=== PATIENT | female | born 1950 | race Caucasian/White ===

== ENCOUNTER → 2016-09-16 | Outpatient (CLI) | payer MEDICARE, OTHER | LOC: CARD 09:04 | PROVIDERS: ATTEND Internal Medicine Interventional Cardiology | DX: R42 Dizziness and giddiness (principal); R00.1 Bradycardia, unspecified | CPT/HCPCS: 93225; 93226; 93306 ==

== ENCOUNTER → 2016-10-06 | Outpatient (CLI) | payer MEDICARE, OTHER ==
--- NOTE | 2016-10-06 15:56 | Diagnostic Imaging Report ---
INDICATION: Thyroid nodule. TECHNIQUE: Grayscale sonographic images of the thyroid gland. CORRELATION STUDY: None FINDINGS: RIGHT LOBE: 4.7 x 1.5 x 1.7 cm. Mid inferior aspect is a subtle slightly hypoechoic solid-appearing nodule measuring 7 x 5 x 5 mm. No significant internal vascularity. No significant microcalcifications suggested. LEFT LOBE: 5.5 x 1.2 x 1.8 cm. Centrally, there is a hypoechoic nodule measuring 7 x 5 x 6 mm. No internal vascularity. Slight posterior acoustic enhancement could be slightly completed cyst. Isthmus appears unremarkable. IMPRESSION: Enlarged thyroid gland containing single nodules. Findings are currently indeterminate currently favoring likely benign process. Would however recommend followup ultrasound imaging in approximately six months for reassessment. Dictated by: Dictated on workstation # [id number]
== END ==
LOC: RAD 11:14
PROVIDERS: ATTEND Otolaryngology Otolaryngology/Facial Plastic Surgery
DX: E04.2 Nontoxic multinodular goiter (principal)
CPT/HCPCS: 76536

== ENCOUNTER → 2016-10-29 | Outpatient (CLI) | payer MEDICARE, OTHER ==
--- NOTE | 2016-11-01 08:48 | Diagnostic Imaging Report ---
EXAMINATION: Bilateral screening mammogram 2D views with tomosynthesis. The current study was also evaluated with a Computer Aided Detection (CAD) system. INDICATION: Screening. PERSONAL HISTORY: No current complaints stated on the questionnaire. COMPARISON: 10/29/2015. FINDINGS: The breasts are composed of scattered fibroglandular densities. Benign-appearing calcifications are seen. In the right breast, there is a focal asymmetry seen in the central lower aspect of the right breast with persistent asymmetries on the tomography views. The left breast demonstrates no definite change. IMPRESSION: Focal compression views and an ultrasound evaluation for right breast focal asymmetry is recommended. ACR BI-RADS Category 0: Incomplete. (Needs additional imaging evaluation). Result letter will be mailed to the patient. Note: At least 10% of breast cancer is not imaged by mammography. Dictated by: Dictated on workstation # [id number]
== END ==
LOC: RAD 09:52
PROVIDERS: ATTEND Nurse Practitioner Adult Health
DX: Z12.31 Encounter for screening mammogram for malignant neoplasm of breast (principal)
CPT/HCPCS: 77067

== ENCOUNTER → 2016-11-19 | Outpatient (CLI) | payer MEDICARE, OTHER ==
--- NOTE | 2016-11-19 19:58 | Diagnostic Imaging Report ---
Unilateral diagnostic right mammogram with tomosynthesis. INDICATION: Abnormal screening mammogram. The current study was also evaluated with a Computer Aided Detection (CAD) system. FINDINGS: The recent screening mammogram performed on 10/29/2016 noted a focal asymmetry in the central portion of the breast. The compression views of this area show that this density has a generally benign appearance. I suspect that this is a cyst. Even so, an ultrasound will be recommended for further study. There is also a smaller 5 mm density in the far lateral aspect of the right breast. This is only clearly seen on the craniocaudal view. In reviewing the tomographic images, there may be a small density in this region. The finding is not as conspicuous on the compression view and is difficult to identify with certainty on the ML view. Even so, I would recommend that this portion of the right breast be evaluated by ultrasound as well. IMPRESSION: The rounded density in the midportion of the right breast seen previously is most likely a benign process. There is also a much smaller density in the far lateral aspect of the right breast. This does not have a threatening appearance, but ultrasound of both these areas will be recommended for further study. ACR BI-RADS Category 0: Incomplete. (Needs additional imaging evaluation). Result letter will be mailed to the patient. Note: At least 10% of breast cancer is not imaged by mammography. Dictated by: Dictated on workstation # [id number]
--- NOTE | 2016-11-19 20:09 | Diagnostic Imaging Report ---
INDICATION: Abnormal mammogram. EXAMINATION: Ultrasound of the right breast. FINDINGS: The screening mammogram performed 10/29/16 noted a focal asymmetry in the central portion of the breast. There was a small area of slightly increased density in the lateral aspect of the breast as well. The diagnostic mammogram performed earlier today suggested that the density in the central portion of the breast was a benign process. On this study, there is a roughly 7 mm benign appearing cyst in the 10:30 position of the right breast, roughly 7 cm from the nipple. I suspect that this corresponds to the rounded density seen on the mammogram. The small nodular density in the far lateral aspect of the breast could not be identified as either cystic or solid. I suspect it is a benign process but I would recommend that a six month followup mammogram and ultrasound exam of the right breast be obtained for continued evaluation. IMPRESSION: The nodular density in the midportion of the breast is a cyst. The small density in the lateral aspect of the breast, seen on mammogram, could not be clearly identified. This finding is most likely benign. Recommendations as above. ACR BI-RADS Category 3: Probably benign findings. Result letter will be mailed to the patient. Note: At least 10% of breast cancer is not imaged by mammography. Dictated by: Dictated on workstation # [id number]
== END ==
LOC: RAD 07:19
PROVIDERS: ATTEND Nurse Practitioner Adult Health
DX: R92.8 Other abnormal and inconclusive findings on diagnostic imaging of breast (principal)

== ENCOUNTER → 2017-03-24 | Outpatient (CLI) | payer MEDICARE, OTHER ==
--- NOTE | 2017-03-24 13:00 | Diagnostic Imaging Report ---
CLINICAL INDICATION: Patient with thyroid nodules. COMPARISONS: Thyroid ultrasound dated 10/06/2016. FINDINGS: THYROID NODULES: There is a 7 mm x 5 mm x 7 mm slightly heterogeneous hypoechoic nodule within the posteroinferior aspect of the right thyroid gland. This nodule has not significantly changed compared to the prior study. There is a 7 mm x 4 mm x 6 mm hypoechoic nodule in the mid left thyroid gland region. This nodule has not significantly changed compared to the prior ultrasound exam. THYROID GLAND: Besides the thyroid nodules, the thyroid gland has normal size, shape and echogenicity. The right lobe measures 5.0 cm x 1.5 cm x 1.6 cm and the left lobe measures 4.7 cm x 1.5 cm x 1.5 cm in their three dimensions. ISTHMUS: The isthmus is unremarkable and measures 3 mm in thickness. IMPRESSION: Stable right and left thyroid gland nodules both measuring 7 mm in greatest dimension. Otherwise, unremarkable thyroid gland ultrasound exam. Dictated by: Dictated on workstation # [id number]
== END ==
LOC: RAD 09:29
PROVIDERS: ATTEND Otolaryngology Otolaryngology/Facial Plastic Surgery
DX: E04.2 Nontoxic multinodular goiter (principal)
CPT/HCPCS: 76536

== ENCOUNTER → 2017-05-11 | Outpatient (CLI) | payer MEDICARE, OTHER ==
--- NOTE | 2017-05-11 14:57 | Diagnostic Imaging Report ---
Digital mammogram bilateral screening. INDICATION: Followup exam. This study was compared to the prior exams of 10/29/16 and 10/28/15. At this time, there are no current complaints. The current study was also evaluated with a Computer Aided Detection (CAD) system. FINDINGS: The previous exam of 11/19/16 noted a focal asymmetry in the central portion of the breast. The subsequent ultrasound exam indicated that there was a 7 mm benign-appearing cyst in the 10:30 position of the right breast in this area. On this exam, that density does not seem as conspicuous. Ultrasound is pending for further study. The previous study also noted a small 5 mm density in the lateral aspect of the right breast. This could not be identified by ultrasound. That finding is again evident and no different. The overall appearance of the breast has not changed significantly otherwise. There is no primary or secondary sign of malignancy noted. There are scattered fibroglandular densities in the right breast which could obscure a lesion, however. IMPRESSION: The small nodular density in the midportion of the right breast seen previously is not as conspicuous on this exam. The overall appearance of the breast has not changed significantly otherwise. Ultrasound is pending for further evaluation. ACR BI-RADS Category 0: Incomplete. (Needs additional imaging evaluation). Result letter will be mailed to the patient. Note: At least 10% of breast cancer is not imaged by mammography. Dictated by: Dictated on workstation # [id number]
--- NOTE | 2017-05-11 15:17 | Diagnostic Imaging Report ---
INDICATION: Followup mammogram. EXAMINATION: Ultrasound of the right breast, limited. FINDINGS: The diagnostic mammogram performed on the 11/19/16 noted a small rounded density in the midportion of the right breast as well as a smaller density in the lateral aspect of the right breast. The right breast ultrasound exam performed at the same time indicated that there was a small, 7 mm, cyst in the 7 o'clock position of the right breast. On the diagnostic mammogram performed earlier today, the density in the midportion of the right breast did not seem as conspicuous. On this exam, the cyst noted previously cannot be identified. There is still no discrete solid or cystic mass visualized. IMPRESSION: 1. The small cyst in the 10:30 position of the right breast, seen previously, is no longer evident. There is no solid mass to suggest malignancy. 2. It may prove worthwhile to have a followup diagnostic mammogram of the right breast in six months for continued evaluation. A screening mammogram of the left breast could also be performed at the same time. ACR BI-RADS Category 3: Probably benign findings. Result letter will be mailed to the patient. Note: At least 10% of breast cancer is not imaged by mammography. Dictated by: Dictated on workstation # [id number]
== END ==
LOC: RAD 12:24
PROVIDERS: ATTEND Internal Medicine
DX: Z09 Encounter for follow-up examination after completed treatment for conditions other than malignant neoplasm (principal); R92.8 Other abnormal and inconclusive findings on diagnostic imaging of breast

== ENCOUNTER 2017-06-06 08:30 | Outpatient (RCR) | payer MEDICARE, OTHER | END 2017-08-11 | disposition home or self-care (01) | LOC: CARD 08:30 | PROVIDERS: ATTEND Internal Medicine Interventional Cardiology | DX: R42 Dizziness and giddiness (principal) | CPT/HCPCS: 93270 ==

== ENCOUNTER → 2017-06-16 | Outpatient (CLI) | payer MEDICARE, OTHER ==
[~2017-06-16] MED LIST: IOHEXOL 350 MG/ML 100 ML (OMNIPAQUE 350) VIAL IV ONE; NS 250 ML (IVPB) BAG IV ONE
[2017-06-16 08:43] LABS: CREATININE SERUM 0.97 MG/DL (0.60-1.30)
--- NOTE | 2017-06-16 10:53 | Diagnostic Imaging Report ---
CLINICAL INDICATION: Patient with dizziness/balance issues x1 year. Patient with memory loss x3 months. Dementia. EXAM: Axial CT scan of the brain performed without IV contrast and with 80 cc of Omnipaque 350 IV contrast. COMPARISON: None. FINDINGS: There is no CT evidence of acute cerebral infarct, intracranial hemorrhage, brain herniation, or hydrocephalus. There is no abnormal IV contrast enhancement. There are focal and patchy areas of low-attenuation white matter changes seen throughout both cerebral hemispheres, likely representing chronic small vessel ischemic disease. Otherwise, there is normal styles-white matter distinction. The brain parenchymal volume appears appropriate for patient's age. The visualized portions of the [place] is grossly unremarkable. The basal cisterns are unremarkable. Mild hyperostosis frontalis is seen. The extracranial soft tissue, skull, and orbits are otherwise unremarkable. Paranasal sinuses and temporal bone structures show no significant abnormality. IMPRESSION: 1.: There is no evidence of acute intracranial process. There is no abnormal IV contrast enhancement. There is no hydrocephalus. 2: Age-related appearing brain parenchymal changes with chronic small vessel ischemic disease and mild brain parenchymal volume loss. Dictated by: Dictated on workstation # [id number]
== END ==
LOC: RAD 08:14
PROVIDERS: ATTEND Internal Medicine
DX: I67.82 Cerebral ischemia (principal); F03.90 Unspecified dementia, unspecified severity, without behavioral disturbance, psychotic disturbance, mood disturbance, and anxiety; R41.3 Other amnesia; G93.89 Other specified disorders of brain
CPT/HCPCS: 36415; 70470; 82565; 84520

== ENCOUNTER → 2017-09-20 | Outpatient (CLI) | payer MEDICARE, OTHER ==
[2017-09-20 09:17] LABS: BILIRUBIN,URINE NEGATIVE (NEGATIVE); CLARITY,URINE SLIGHTLY CLOUDY; COLOR,URINE YELLOW; GLUCOSE, URINE (UA) NEGATIVE (NEGATIVE); KETONES,URINE NEGATIVE (NEGATIVE); LEUKOCYTE ESTERASE ,URINE NEGATIVE (NEGATIVE); NITRITE,URINE POSITIVE (NEGATIVE); PH,URINE 6.5 (5-9); PROTEIN,URINE NEGATIVE (NEGATIVE); UROBILINOGEN,URINE NORMAL (NORMAL)
[2017-09-20 09:18] LABS: HEMOGLOBIN 14.4 G/DL (11.5-16.0); RED BLOOD COUNT 4.51 10^6/uL (4.35-5.85); RED CELL DISTRIBUTION WIDTH 13.2 % (10.0-14.5); WHITE BLOOD COUNT 6.1 10^3/uL (4.3-11.0)
[2017-09-20 09:28] LABS: BACTERIA,URINE NEGATIVE /HPF; SQUAMOUS EPITHELIAL CELL,UR 0-2 /HPF; WBC,URINE 0-2 /HPF
[2017-09-20 09:49] LABS: URINE CREATININE FOR RATIO 45 MG/DL (30-125); URINE PROTEIN FOR RATIO ONLY < 6 MG/DL (6-12)
[2017-09-20 09:50] LABS: ALBUMIN 4.4 GM/DL (3.2-4.5); CREATININE SERUM 0.98 MG/DL (0.60-1.30); PHOSPHORUS 3.6 MG/DL (2.3-4.7)
== END ==
LOC: LAB 08:54
PROVIDERS: ATTEND Nurse Practitioner
DX: E78.5 Hyperlipidemia, unspecified (principal); E55.9 Vitamin D deficiency, unspecified; E83.39 Other disorders of phosphorus metabolism; E87.3 Alkalosis; E87.6 Hypokalemia; E83.52 Hypercalcemia; I12.9 Hypertensive chronic kidney disease with stage 1 through stage 4 chronic kidney disease, or unspecified chronic kidney disease; N18.3 Chronic kidney disease, stage 3 (moderate)
CPT/HCPCS: 36415; 80061; 80069; 81000; 82306; 82570; 84156; 85027; 87088

== ENCOUNTER → 2018-01-12 | Outpatient (CLI) | payer MEDICARE, OTHER ==
[2018-01-12 09:01] LABS: ALANINE AMINOTRANSFERASE 23 U/L (0-55); ALBUMIN 4.6 GM/DL (3.2-4.5); ALKALINE PHOSPHATASE 56 U/L (40-136); BILIRUBIN,TOTAL 0.9 MG/DL (0.1-1.0); BUN/CREATININE RATIO 19; CALCIUM 9.8 MG/DL (8.5-10.1); CARBON DIOXIDE 22 MMOL/L (21-32); CHLORIDE 107 MMOL/L (98-107); CHOLESTEROL 170 MG/DL (< 200); CREATININE SERUM 0.99 MG/DL (0.60-1.30); GFR ESTIMATED 56; GLUCOSE 104 MG/DL (70-105); HDL CHOLESTEROL 54 MG/DL (40-60); POTASSIUM 3.7 MMOL/L (3.6-5.0); SODIUM 139 MMOL/L (135-145); TOTAL PROTEIN 7.4 GM/DL (6.4-8.2); TRIGLYCERIDES 140 MG/DL (<150); VLDL CHOLESTEROL 28 MG/DL (5-40)
== END ==
LOC: LAB 08:22
PROVIDERS: ATTEND Internal Medicine
DX: I10 Essential (primary) hypertension (principal); E78.00 Pure hypercholesterolemia, unspecified
CPT/HCPCS: 36415; 80053; 80061; 84443

== ENCOUNTER → 2021-11-20 | Outpatient (CLI) | payer MEDICARE, OTHER ==
--- NOTE | 2021-11-23 08:49 | Diagnostic Imaging Report ---
INDICATION: Routine screening. Comparison is made with prior mammogram of 11/25/2017 and 10/29/2016. 2-D and 3-D bilateral screening mammography was performed with CAD. Both breasts are heterogeneously dense, limiting the sensitivity of mammography. The parenchymal pattern is stable. There are benign calcifications. No dominant mass or malignant-appearing microcalcifications are seen. Axillae are unremarkable. IMPRESSION: No mammographic features suspicious for malignancy are identified. ACR BI-RADS Category 2: Benign findings. Result letter will be mailed to the patient. Note: At least 10% of breast cancer is not imaged by mammography. BI-RADS Category 2 Dictated by: Dictated on workstation # [id number]
== END ==
LOC: RAD 15:07
PROVIDERS: ATTEND Family Medicine
DX: Z12.31 Encounter for screening mammogram for malignant neoplasm of breast (principal)
CPT/HCPCS: 77063; 77067

== ENCOUNTER 2023-01-12 20:07 | Observation (INO) | payer MEDICARE ==
[~2023-01-12] VITALS: Ht 170.2 cm; Wt 72.7 kg
--- NOTE | 2023-01-12 20:18 | ED General ---
General Chief Complaint: General Problems/Pain Stated Complaint: WEAKNESS Nursing Triage Note: PT TO ED VIA EMS WITH C/O GEN WEAKNESS OVER THE LAST WEEK, LOWER RIGHT SIDED BACK PAIN Source of Information: Patient (PT IS EXTREMELY POOR HISTORIAN--HAS DEMENTIA, UNABLE TO GIVE ANY RELIABLE INFORMATION, BUT IS ABLE TO ANSWER YES/NO QUESTIONS ABOUT PAIN ), Intermediate Records, Other (PT'S NIECE AND DPOA) History of Present Illness Date Seen by Provider: Jan 12, 2023 Time Seen by Provider: 20:09 Initial Comments PT ARRIVES VIA EMS FROM [facility] FOR THE LAST WEEK, PT HAS HAD LOW BACK PAIN AND RIGHT LEG PAIN AND WEAKNESS NO KNOWN INJURY PT IS NORMALLY AMBULATORY WITHOUT ASSIST, BUT HAS NOT BEEN ABLE TO GET OUT OF BED OR STAND OR AMBULATE FOR THE LAST WEEK, WITHOUT 2 PERSON ASSIST. NIECE/DPOA STATES THAT SHE HAS NOTICED GENERALIZED WEAKNESS, AND NEEDING ASSISTANCE WITH AMBULATION FOR THE LAST WEEK, BUT GETTING WORSE . HAS NOT SOUGHT CARE UNTIL TONIGHT HAS NOT TAKEN ANYTHING FOR PAIN PCP: DR. MEJIA Allergies and Home Medications Allergies Coded Allergies: No Allergy Information Available (Unverified , 06/16/17) Patient Home Medication List Home Medication List Reviewed: Yes Review of Systems Review of Systems Constitutional: no symptoms reported Respiratory: no symptoms reported Cardiovascular: no symptoms reported Gastrointestinal: no symptoms reported Genitourinary: no symptoms reported Musculoskeletal: see HPI Skin: no symptoms reported Psychiatric/Neurological: See HPI Past Czyfiip-Vpwbfe-Mwllqd Hx Past Medical History Neurological: Yes Dementia Physical Exam Vital Signs Vital Signs - First Documented 01/12/23 20:10 Temp 36.8 Pulse 61 Resp 18 Pulse Ox 97 Capillary Refill : Height, Weight, BMI Height: '" Weight: lbs. oz. kg; BMI Method: General Appearance: No Apparent Distress, WD/WN, Other (HAIR IS DYED PURPLE) Neck: Normal Inspection Respiratory: Chest Non Tender, Normal Breath Sounds, No Accessory Muscle Use, No Respiratory Distress Cardiovascular: Regular Rate, Rhythm, No Murmur Gastrointestinal: Non Tender, Soft Back: No CVA Tenderness, Other (TENDERNESS TO LUMBAR AND RIGHT SI JOINT/POSTERIOR ILIAC AREA. PAIN TO THIS AREA WITH MOVEMENT OF RIGHT LEG. ) Extremity: Normal Capillary Refill, Pedal Edema (TRACE BILATERALLY) Neurologic/Psychiatric: Alert, No Motor/Sensory Deficits, Normal Mood/Affect, lift manager II-XII Norm as Tested, Other (NORMAL BASELINE--DEMENTIA/POOR MEMORY. ORIENTED TO SELF, NIECE. KNOWS SHE IS IN HOSPITAL. ) Skin: Normal Color, Warm/Dry; No Rash Progress/Results/Core Measures Suspected Sepsis SIRS Temperature: Pulse: 61 Respiratory Rate: 18 Laboratory Tests 01/12/23 20:14: White Blood Count 9.4 Blood Pressure / Mean: Laboratory Tests 01/12/23 20:14: Creatinine 0.93, Platelet Count 234, Total Bilirubin 0.5 Results/Orders Lab Results Laboratory Tests Test 01/12/23 20:14 01/12/23 20:22 Range/Units White Blood Count 9.4 4.3-11.0 10^3/uL Red Blood Count 4.67 3.80-5.11 10^6/uL Hemoglobin 14.8 11.5-16.0 g/dL Hematocrit 44 35-52 % Mean Corpuscular Volume 94 80-99 fL Mean Corpuscular Hemoglobin 32 25-34 pg Mean Corpuscular Hemoglobin Concent 34 32-36 g/dL Red Cell Distribution Width 13.0 10.0-14.5 % Platelet Count 234 130-400 10^3/uL Mean Platelet Volume 10.8 9.0-12.2 fL Immature Granulocyte % (Auto) 0 % Neutrophils (%) (Auto) 50 42-75 % Lymphocytes (%) (Auto) 36 12-44 % Monocytes (%) (Auto) 8 0-12 % Eosinophils (%) (Auto) 5 0-10 % Basophils (%) (Auto) 1 0-10 % Neutrophils # (Auto) 4.7 1.8-7.8 10^3/uL Lymphocytes # (Auto) 3.3 1.0-4.0 10^3/uL Monocytes # (Auto) 0.8 0.0-1.0 10^3/uL Eosinophils # (Auto) 0.5 H 0.0-0.3 10^3/uL Basophils # (Auto) 0.1 0.0-0.1 10^3/uL Immature Granulocyte # (Auto) 0.0 0.0-0.1 10^3/uL Sodium Level 140 135-145 MMOL/L Potassium Level 3.9 3.6-5.0 MMOL/L Chloride Level 106 98-107 MMOL/L Carbon Dioxide Level 21 21-32 MMOL/L Anion Gap 13 5-14 MMOL/L Blood Urea Nitrogen 14 7-18 MG/DL Creatinine 0.93 0.60-1.30 MG/DL Estimat Glomerular Filtration Rate 64 BUN/Creatinine Ratio 15 Glucose Level 103 70-105 MG/DL Calcium Level 9.4 8.5-10.1 MG/DL Corrected Calcium 9.4 8.5-10.1 MG/DL Total Bilirubin 0.5 0.1-1.0 MG/DL Aspartate Amino Transf (AST/SGOT) 30 5-34 U/L Alanine Aminotransferase (ALT/SGPT) 20 0-55 U/L Alkaline Phosphatase 58 40-136 U/L Total Protein 7.2 6.4-8.2 GM/DL Albumin 4.0 3.2-4.5 GM/DL Urine Color YELLOW Urine Clarity CLEAR Urine pH 7.5 5-9 Urine Specific [place] 1.020 1.016-1.022 Urine Protein NEGATIVE NEGATIVE Urine Glucose (UA) NEGATIVE NEGATIVE Urine Ketones NEGATIVE NEGATIVE Urine Nitrite NEGATIVE NEGATIVE Urine Bilirubin NEGATIVE NEGATIVE Urine Urobilinogen 0.2 < = 1.0 MG/DL Urine Leukocyte Esterase NEGATIVE NEGATIVE Urine RBC (Auto) NEGATIVE NEGATIVE Urine RBC NONE /HPF Urine WBC RARE /HPF Urine Squamous Epithelial Cells NONE /HPF Urine Crystals PRESENT H /LPF Urine Amorphous Sediment LARGE ARMANDO PHOSPHATE H /LPF Urine Bacteria NEGATIVE /HPF Urine Casts PRESENT /LPF Urine Granular Casts 0-2 H /LPF Urine Mucus SMALL H /LPF Urine Culture Indicated NO My Orders Orders - DANIEL MESSER DO Ed Iv/Invasive Line Start (01/12/23 20:14) Straight Cath For Spec.-Adult (01/12/23 20:14) Cbc And Automated Diff (01/12/23 20:14) Comprehensive Metabolic Panel (01/12/23 20:14) Ua Culture If Indicated (01/12/23 20:14) Pelvis 1 To 2 Views (01/12/23 20:14) Ct Thoracic/Lumbar Spine Wo (01/12/23 20:14) Ct Pelvis Wo (01/12/23 20:14) Ed Admission (Communication) (01/12/23 21:20) Vital Signs/I&O 01/12/23 20:10 Temp 36.8 Pulse 61 Resp 18 B/P (MAP) Pulse Ox 97 Capillary Refill : Progress Note : Progress Note VITALS ON ARRIVAL: TEMP 36.8=98.2, HR 61, RR 18, BP157/83, O2 SAT 97% ON ROOM AIR LABS: -CBC NORMAL -CMP NORMAL -UA CLEAR XRAY AND CT SCANS--DEGENERATIVE CHANGES, DISC BULGING, BUT NO SIGNIFICANT STENOSIS NIECE STATES THAT PT DOES HAVE A WALKER, BUT STATES SHE CANNOT TAKE HER BACK, PT IS NOT ABLE TO AMBULATE OR STAND WITHOUT SIGNIFICANT ASSISTANCE, AND SHE IS AT [facility] ASSISTED [facility]IV[facility], SHE CURRENTLY IS NEEDING MORE ASSISTANCE THAN WHAT CAN BE PROVIDED THERE. NO PAIN WHILE LAYING STILL DISCUSSED TEST RESULTS, NEED FOR ADMIT AND PT AND NIECE ARE AGREEABLE TO PLAN Diagnostic Imaging Comments PELVIS XRAY--PER RADIOLOGIST REPORT CT THORACIC / LUMBAR SPINE--PER RADIOLOGIST REPORT AT 2104 Findings: There is no acute thoracic or lumbar fracture or dislocation. Thoracic and lumbar spine have normal alignment. The visualized extrathoracic, and lumbar soft tissue structures are unremarkable. There are degenerative spurs involving the thoracic and lumbar spine. There is no significant bony central canal or neural foramen narrowing involving the thoracic spine. There are diffuse disk bulges seen at the L2-L3, L3-L4, and L4-L5 levels. There is mild to moderate bilateral L4-L5 neural foramen narrowing and mild to moderate right L3-L4 neural foramen narrowing. There is no significant bony central canal stenosis. There is no significant paraspinal soft tissue abnormality. Impression: There is no acute thoracic spine and lumbar spine fracture or dislocation. CT PELVIS--PER RADIOLOGIST REPORT AT 2014 FINDINGS: There is no acute fracture or dislocation. There are small degenerative spurs involving the acetabular region. There is enthesopathy of the greater trochanter. There is mild sclerosis of the sacroiliac joint regions. There is diverticulosis involving the sigmoid colon with no evidence of acute diverticulitis as visualized. There is a moderate amount of stool within the rectum. 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 Reviewed: Reviewed by Me Departure Communication (Admissions) 2112--SPOKE WITH DR. STALLWORTH, HOSPITALIST FOR DR. STALLWORTH, SHE ACCEPTS PT FOR ADMIT. SHE WILL DO ADMIT ORDERS Impression Primary Impression: Low back pain Additional Impressions: Right sided sciatica Generalized weakness Dementia Disposition: ADMITTED INPATIENT Condition: Stable Admissions Decision to Admit Reason: Admit from ER (General) Decision to Admit/Date: Jan 12, 2023 Time/Decision to Admit Time: 21:15 Departure-Patient Inst. Referrals: NIYA RIBERA MD (PCP/Family) Primary Care Physician DANIEL MESSER DO Jan 12, 2023 20:17
[2023-01-12 20:24] LABS: BASOPHILS # (AUTO) 0.1 10^3/uL (0.0-0.1); BASOPHILS % (AUTO) 1 % (0-10); EOSINOPHILS # (AUTO) 0.5 10^3/uL (0.0-0.3); EOSINOPHILS % (AUTO) 5 % (0-10); HEMATOCRIT 44 % (35-52); HEMOGLOBIN 14.8 g/dL (11.5-16.0); LYMPHOCYTES # (AUTO) 3.3 10^3/uL (1.0-4.0); LYMPHOCYTES % (AUTO) 36 % (12-44); MEAN CORPUSCULAR HEMOGLOBIN 32 pg (25-34); MEAN CORPUSCULAR HGB CONC 34 g/dL (32-36); MEAN CORPUSCULAR VOLUME 94 fL (80-99); MEAN PLATELET VOLUME 10.8 fL (9.0-12.2); MONOCYTES # (AUTO) 0.8 10^3/uL (0.0-1.0); MONOCYTES % (AUTO) 8 % (0-12); NEUTROPHILS # (AUTO) 4.7 10^3/uL (1.8-7.8); NEUTROPHILS % (AUTO) 50 % (42-75); PLATELET COUNT 234 10^3/uL (130-400); WHITE BLOOD COUNT 9.4 10^3/uL (4.3-11.0)
[2023-01-12 20:33] LABS: POTASSIUM 3.9 MMOL/L (3.6-5.0)
[2023-01-12 20:34] LABS: CALCIUM 9.4 MG/DL (8.5-10.1)
[2023-01-12 20:35] LABS: TOTAL PROTEIN 7.2 GM/DL (6.4-8.2)
[2023-01-12 20:37] LABS: BILIRUBIN,TOTAL 0.5 MG/DL (0.1-1.0)
[2023-01-12 20:39] LABS: CREATININE SERUM 0.93 MG/DL (0.60-1.30)
--- NOTE | 2023-01-12 20:53 | Diagnostic Imaging Report ---
Clinical indications: Patient complains of generalized weakness over last week. Patient has lower right-sided back pain. Exam: Axial CT scan of the thoracic and lumbar spine performed without IV contrast. Sagittal and coronal reformations were performed. Bone and soft tissue windows were created. Auto Exposure Controls were utilized during the CT exam to meet ALARA standards for radiation dose reduction. Comparison: None. Findings: There is no acute thoracic or lumbar fracture or dislocation. Thoracic and lumbar spine have normal alignment. The visualized extrathoracic, and lumbar soft tissue structures are unremarkable. There are degenerative spurs involving the thoracic and lumbar spine. There is no significant bony central canal or neural foramen narrowing involving the thoracic spine. There are diffuse disk bulges seen at the L2-L3, L3-L4, and L4-L5 levels. There is mild to moderate bilateral L4-L5 neural foramen narrowing and mild to moderate right L3-L4 neural foramen narrowing. There is no significant bony central canal stenosis. There is no significant paraspinal soft tissue abnormality. Impression: There is no acute thoracic spine and lumbar spine fracture or dislocation. Dictated by: Dictated on workstation # [id number]
--- NOTE | 2023-01-12 21:00 | Diagnostic Imaging Report ---
CLINICAL INDICATION: Patient with generalized weakness over last week with lower right-sided back pain. EXAM: Axial CT scan of the pelvis performed without IV contrast. Auto Exposure Controls were utilized during the CT exam to meet ALARA standards for radiation dose reduction. COMPARISON: None. FINDINGS: There is no acute fracture or dislocation. There are small degenerative spurs involving the acetabular region. There is enthesopathy of the greater trochanter. There is mild sclerosis of the sacroiliac joint regions. There is diverticulosis involving the sigmoid colon with no evidence of acute diverticulitis as visualized. There is a moderate amount of stool within the rectum. 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 Dictated by: Dictated on workstation # [id number]
[2023-01-12 21:02] LABS: AMORPHOUS SEDIMENT,UR LARGE AMOR PHOSPHATE /LPF; BACTERIA,URINE NEGATIVE /HPF; BILIRUBIN,URINE NEGATIVE (NEGATIVE); CLARITY,URINE CLEAR; COLOR,URINE YELLOW; GLUCOSE, URINE (UA) NEGATIVE (NEGATIVE); KETONES,URINE NEGATIVE (NEGATIVE); LEUKOCYTE ESTERASE ,URINE NEGATIVE (NEGATIVE); NITRITE,URINE NEGATIVE (NEGATIVE); PH,URINE 7.5 (5-9); PROTEIN,URINE NEGATIVE (NEGATIVE); WBC,URINE RARE /HPF
[2023-01-12 21:03] LABS: GRANULAR CASTS,URINE 0-2 /LPF
--- NOTE | 2023-01-12 21:11 | Diagnostic Imaging Report ---
CLINICAL INDICATIONS: Patient with generalized weakness over last week with lower right-sided back pain. EXAM: X-ray pelvis AP view. COMPARISON: CT of the pelvis without contrast dated 01/12/2023. FINDINGS: There is no acute fracture or dislocation. There is mild sclerosis of the sacroiliac joint. There is enthesopathy of the greater trochanter regions bilaterally. There is no other significant bony abnormality. Phleboliths are seen in left pelvis region. IMPRESSION: There is mild degenerative disease of the hips with no acute fracture. Dictated by: Dictated on workstation # [id number]
[2023-01-12 22:24] VITALS: BP 146/72
[2023-01-12] MEDS ORDERED: MILK OF MAGNESIA 400 MG/5 ML 30 ML UDC PO PRN (22:30)
[2023-01-12] MEDS ORDERED: ONDANSETRON 4 MG ORAL DISSOLVE TABLET PO PRN (22:30)
[2023-01-12] MEDS ORDERED: LACTULOSE SYRUP 10GM/15ML 30ML UDC PO PRN (22:30)
[2023-01-12] MEDS ORDERED: MELATONIN 3 MG TABLET PO PRN (22:30)
[2023-01-12] MEDS ORDERED: ONDANSETRON INJECTION 4 MG/2 ML (SDV) IV PRN (22:30)
[2023-01-12] MEDS ORDERED: CALCIUM CARBONATE 500 MG CHEW TABLET PO PRN (22:30)
[2023-01-12] MEDS ORDERED: ANTACID SUSPENSION 30 ML UDC PO PRN (22:30)
[2023-01-12] MEDS ORDERED: HYDROmorphone INJECTION 2 MG/ML VIAL IV PRN (22:30)
[2023-01-12] MEDS ORDERED: BISACODYL 10 MG SUPPOSITORY PR PRN (22:30)
[2023-01-12] MEDS ORDERED: ACETAMINOPHEN 325 MG TABLET PO PRN (22:30)
[2023-01-12] MEDS ORDERED: HALOPERIDOL INJECTION 5 MG/ML VIAL IM PRN (22:30)
[2023-01-12] MEDS ORDERED: diphenhydrAMINE INJ 50 MG/ML VIAL IVP PRN (22:30)
[2023-01-12] MEDS ORDERED: cloNIDine 0.1 MG TABLET PO PRN (22:30)
[2023-01-12] MEDS ORDERED: diphenhydrAMINE 25 MG TABLET PO PRN (22:30)
[2023-01-12] MEDS ORDERED: LORazepam 0.5 MG TABLET PO PRN (22:30)
[2023-01-12 22:36] VITALS: BP 157/83
[2023-01-12 22:38] VITALS: BP 157/83
[2023-01-12] MEDS: oxyCODONE IMMEDIATE RELEASE 5 MG TABLET PO PRN (22:45)
[2023-01-12 23:23] VITALS: BP 157/83
[2023-01-13] MEDS: NS IV 1000 ML 1,000 ML IV SCH ×3 (00:17→17:02)
[2023-01-13] MEDS ORDERED: [UNRECOGNIZED DRUG - CODE] PO (00:55)
[2023-01-13] MEDS ORDERED: EZET10TA49 PO (00:55)
[2023-01-13] MEDS ORDERED: MEMA21CA PO (00:55)
[2023-01-13] MEDS ORDERED: ACET325T38 PO (00:55)
[2023-01-13] MEDS ORDERED: VITMAIN PO (00:55)
[2023-01-13] MEDS ORDERED: AMLO-250 PO (00:55)
[2023-01-13] MEDS ORDERED: DONE10TA12 PO (00:55)
[2023-01-13] MEDS ORDERED: LOPE2CAP PO (00:55)
[2023-01-13] MEDS: oxyCODONE IMMEDIATE RELEASE 5 MG TABLET PO PRN ×2 (02:59→22:11)
[2023-01-13 03:12] VITALS: BP 125/59
[2023-01-13 05:51] LABS: BASOPHILS # (AUTO) 0.1 10^3/uL (0.0-0.1); BASOPHILS % (AUTO) 1 % (0-10); EOSINOPHILS # (AUTO) 0.1 10^3/uL (0.0-0.3); EOSINOPHILS % (AUTO) 1 % (0-10); HEMATOCRIT 42 % (35-52); HEMOGLOBIN 14.1 g/dL (11.5-16.0); LYMPHOCYTES # (AUTO) 1.2 10^3/uL (1.0-4.0); LYMPHOCYTES % (AUTO) 13 % (12-44); MEAN CORPUSCULAR HEMOGLOBIN 32 pg (25-34); MEAN CORPUSCULAR HGB CONC 34 g/dL (32-36); MEAN CORPUSCULAR VOLUME 94 fL (80-99); MONOCYTES # (AUTO) 0.7 10^3/uL (0.0-1.0); MONOCYTES % (AUTO) 8 % (0-12); NEUTROPHILS # (AUTO) 6.9 10^3/uL (1.8-7.8); NEUTROPHILS % (AUTO) 77 % (42-75); PLATELET COUNT 217 10^3/uL (130-400)
[2023-01-13 06:02] LABS: ALBUMIN 3.8 GM/DL (3.2-4.5); POTASSIUM 3.6 MMOL/L (3.6-5.0)
[2023-01-13 06:04] LABS: CALCIUM 8.9 MG/DL (8.5-10.1)
[2023-01-13 06:05] LABS: TOTAL PROTEIN 6.5 GM/DL (6.4-8.2)
[2023-01-13 06:06] LABS: BILIRUBIN,TOTAL 0.7 MG/DL (0.1-1.0)
[2023-01-13 06:08] LABS: CREATININE SERUM 0.81 MG/DL (0.60-1.30)
[2023-01-13 07:28] VITALS: BP 137/65
[2023-01-13] MEDS: DOCUSATE SODIUM 100 MG CAPSULE PO SCH ×2 (08:08→20:21)
[2023-01-13] MEDS: SENNOSIDES 8.6 MG TABLET PO SCH ×2 (08:08→20:21)
[2023-01-13] MEDS: ENOXAPARIN 40 MG/0.4 ML SYRINGE SC SCH (08:08)
--- NOTE | 2023-01-13 10:04 | History & Physical ---
NATHALY GALLAGHER 01/13/23 1004: History of Present Illness History of Present Illness Reason for visit/HPI 01/13/2023: CC: Generalized weakness HPI: Katalina is a 72 year old female that presented to the ED on 01/12 due to some generalized weakness and lower back pain. CT found degenerative changes of the hips and pelvis. She has a past medical history of dementia and came from a SNF. When talking to Katalina she was alert to self only and was not making sense. When asked about pain she denies any issues. She was previously complaining of extensive pain. When asked she confirms that she feels confused and is not aware where she is. She denies any headaches, N/V, or stomach complaints. She notes that she slept well. Katalina was also talking about how she was going to "go over there and pick him up" when looking at the door. There was no person at the door at this time. No other concerns. Date of Admission Jan 12, 2023 at 21:53 Date Seen by a Provider: Jan 13, 2023 Time Seen by a Provider: 10:03 I consulted on this patient on 01/13/23 09:59 Attending Physician Gilma Adler DO Admitting Physician Admitting Physician: Adriana Stallworth DO Attending Physician: Adriana Stallworth DO Consult Allergies and Home Medications Allergies Coded Allergies: No Allergy Information Available (Unverified , 06/16/17) Patient Home Medication List Home Medication List Reviewed: Yes Acetaminophen (Tylenol) 325 Mg Tablet, 650 MG PO Q6H PRN for PAIN-MILD (1-4), (Reported) Entered as Reported by: AMBREEN FISHER on 01/13/2354 Last Action: Reviewed Amlodipine Besylate (Amlodipine Besylate) 5 Mg Tablet, 5 MG PO HS, (Reported) Entered as Reported by: AMBREEN FISHER on 01/13/2354 Last Action: Reviewed Cholecalciferol (Vitamin D3) (Vitamin D3) 25 Mcg (1000 Unit) Capsule, 25 MCG PO DAILY, (Reported) Entered as Reported by: KAVEH CRANDALL on 01/13/23 1510 Last Action: Reviewed Docusate Sodium (Docusate Sodium) 100 Mg Capsule, 100 MG PO Q8H PRN for CONSTIPATION-1ST LINE, (Reported) Entered as Reported by: KAVEH CRANDALL on 01/13/23 1510 Last Action: Reviewed Donepezil HCl (Aricept) 10 Mg Tablet, 10 MG PO HS, (Reported) Entered as Reported by: AMBREEN FISHER on 01/13/2354 Last Action: Reviewed Ezetimibe (Ezetimibe) 10 Mg Tablet, 10 MG PO HS, (Reported) Entered as Reported by: AMBREEN FISHER on 01/13/2354 Last Action: Reviewed Loperamide HCl (Loperamide) 2 Mg Capsule, 2 MG PO HS, (Reported) Entered as Reported by: AMBREEN FISHER on 01/13/2354 Last Action: Reviewed Memantine HCl (Memantine HCl ER) 21 Mg Cap.spr.24, 21 MG PO DAILY, (Reported) Entered as Reported by: AMBREEN FISHER on 01/13/2354 Last Action: Reviewed Multivit-Min/Iron/FA/Vit K/Lut (Centrum Women 50 Plus Minis Tb) 4 Mg Iron-200 Mcg-25 Mcg-150 Mcg Tablet, 1 EACH PO DAILY, (Reported) Entered as Reported by: AMBREEN FISHER on 01/13/2354 Last Action: Reviewed Discontinued Medications [Vitmain D3] , 100 PO DAILY, (Reported) Discontinued Reason: No Longer Taking Entered as Reported by: AMBREEN FISHER on 01/13/2354 Last Action: Discontinued Past Twgublc-Rgjnol-Juzrex Hx Patient Social History Marrital Status: single Employed/Student: retired Tobacco Use?: No Smoking Status: Never a Smoker Smokeless Tobacco Frequency: Never a User Use of E-Cig and/or Vaping Wai: Never a User Substance use?: No Alcohol Use?: No Pt feels they are or have been: No Current Status Advance Directives: Yes Communicates: Verbally Primary Language: Upper Sorbian Preferred Spoken Language: Upper Sorbian Past Medical History Dementia Pt. was unable to recall information about her health background. There was no family able to supplement. Unsure of most aspects of her PMH. Review of Systems Constitutional: no symptoms reported; No dizziness EENTM: no symptoms reported Respiratory: no symptoms reported Cardiovascular: no symptoms reported Gastrointestinal: no symptoms reported Genitourinary: no symptoms reported Musculoskeletal: no symptoms reported Skin: no symptoms reported Psychiatric/Neurological: See HPI, Emotional Problems, Other (dementia ) Physical Exam Vital Signs Vital Signs - First Documented 01/12/23 01/12/23 01/12/23 20:10 22:15 22:36 Temp 36.8 Pulse 61 Resp 18 B/P (MAP) 166/73 (104) Pulse Ox 97 O2 Delivery Room Air FiO2 21 Capillary Refill : Height, Weight, BMI Height: '" Weight: lbs. oz. kg; 25.09 BMI Method: General Appearance: No Apparent Distress, WD/WN Eyes: Bilateral Eye Normal Inspection, Bilateral Eye PERRL HEENT: PERRL/EOMI, Normal ENT Inspection, Pharynx Normal Neck: Full Range of Motion, Normal Inspection, Non Tender, Supple Respiratory: Chest Non Tender, Lungs Clear, Normal Breath Sounds, No Accessory Muscle Use, No Respiratory Distress Cardiovascular: Regular Rate, Rhythm, No Edema, No Gallop, No JVD, No Murmur, Normal Peripheral Pulses Gastrointestinal: Normal Bowel Sounds, Non Tender, Soft Rectal: Deferred Back: Normal Inspection, No CVA Tenderness Extremity: Normal Capillary Refill, Normal Inspection, Non Tender Neurologic/Psychiatric: Alert, Depressed Affect, Other (oriented to self. ) Skin: Normal Color, Warm/Dry Lymphatic: No Adenopathy Assessment/Plan Assessment and Plan 01/13/2023: A/P -Dementia * bed monitor, fall risk * restart Donezepil, Memantine * Review home medications for interactions -Degenerative changes to pelvis and hip * pain medication -Sciatica * pain management -Generalized weakness * consider ARU for strength conditioning Admission Diagnosis Admission Status: Observation ADRIANA STALLWORTH DO 01/13/232109: History of Present Illness History of Present Illness Reason for visit/HPI Chief complaint: Generalized weakness HPI: This is a 72-year-old female assisted living patient who presented to the ER with nonspecific back pain and multiple falls with severe weakness. No fracture was assessed on imaging scan. Goal is to initiate PT and OT and may need skilled or inpatient rehab prior to going back to assisted living. Dementia is significant. Allergies and Home Medications Allergies Coded Allergies: No Allergy Information Available (Unverified , 06/16/17) Patient Home Medication List Acetaminophen (Tylenol) 325 Mg Tablet, 650 MG PO Q6H PRN for PAIN-MILD (1-4), (Reported) Entered as Reported by: AMBREEN FISHER on 01/13/23 7365 Last Action: Reviewed Amlodipine Besylate (Amlodipine Besylate) 5 Mg Tablet, 5 MG PO HS, (Reported) Entered as Reported by: AMBREEN FISHER on 01/13/2354 Last Action: Reviewed Cholecalciferol (Vitamin D3) (Vitamin D3) 25 Mcg (1000 Unit) Capsule, 25 MCG PO DAILY, (Reported) Entered as Reported by: KAVEH CRANDALL on 01/13/231509 Last Action: Reviewed Docusate Sodium (Docusate Sodium) 100 Mg Capsule, 100 MG PO Q8H PRN for CONSTIPATION-1ST LINE, (Reported) Entered as Reported by: KAVEH CRANDALL on 01/13/231509 Last Action: Reviewed Donepezil HCl (Aricept) 10 Mg Tablet, 10 MG PO HS, (Reported) Entered as Reported by: AMBREEN FISHER on 01/13/2354 Last Action: Reviewed Ezetimibe (Ezetimibe) 10 Mg Tablet, 10 MG PO HS, (Reported) Entered as Reported by: AMBREEN FISHER on 01/13/2354 Last Action: Reviewed Loperamide HCl (Loperamide) 2 Mg Capsule, 2 MG PO HS, (Reported) Entered as Reported by: AMBREEN FISHER on 01/13/2354 Last Action: Reviewed Memantine HCl (Memantine HCl ER) 21 Mg Cap.spr.24, 21 MG PO DAILY, (Reported) Entered as Reported by: AMBREEN FISHER on 01/13/2354 Last Action: Reviewed Multivit-Min/Iron/FA/Vit K/Lut (Centrum Women 50 Plus Minis Tb) 4 Mg Iron-200 Mcg-25 Mcg-150 Mcg Tablet, 1 EACH PO DAILY, (Reported) Entered as Reported by: AMBREEN FISHER on 01/13/2354 Last Action: Reviewed Discontinued Medications [Vitmain D3] , 100 PO DAILY, (Reported) Discontinued Reason: No Longer Taking Entered as Reported by: AMBREEN FISHER on 01/13/2354 Last Action: Discontinued Past Ewndqxi-Umdneq-Bobgnr Hx Patient Social History Marrital Status: single Employed/Student: retired Review of Systems Constitutional: see HPI Physical Exam General Appearance: No Apparent Distress, WD/WN Respiratory: Chest Non Tender, Lungs Clear, Normal Breath Sounds, No Accessory Muscle Use, No Respiratory Distress Cardiovascular: Regular Rate, Rhythm, No Edema, No Gallop, No JVD, No Murmur, Normal Peripheral Pulses Neurologic/Psychiatric: Alert Assessment/Plan Assessment and Plan Severe weakness Falls Worsening dementia Plan: PT and OT Inpatient rehab versus skilled Admission Diagnosis Admission Status: Observation Supervisory-Addendum Brief Verification & Attestation Participated in pt care: history, MDM, physical Personally performed: exam, history, MDM, supervision of care Care discussed with: Medical Student Procedures: n/a Results interpretation: Verified all documentation Verification and Attestation of Medical Student E/M Service A medical student performed and documented this service in my presence. I reviewed and verified all information documented by the medical student and made modifications to such information, when appropriate. I personally performed the physical exam and medical decision making. Adriana Stallworth, Jan 13, 2023,21:08 NATHALY GALLAGHER Jan 13, 2023 10:04 ADRIANA STALLWORTH DO Jan 13, 2023 21:10
--- NOTE | 2023-01-13 10:24 | Physical Therapy Evaluation ---
PT Evaluation-General Medical Diagnosis Admission Date Jan 12, 2023 at 21:53 Medical Diagnosis: generalized weakness Onset Date: Jan 12, 2023 Therapy Diagnosis Therapy Diagnosis: impaired mobility/generalized weakness Precautions Precautions/Isolations: Standard Precautions Referral Physician: Chinedu Reason for Referral: Evaluation/Treatment Medical History Pertinent Medical History: Dementia Current History EMS from [place] due to weakness x 1 week Reviewed History: Yes Social History Home: Assisted Living Prior Prior Level of Function SCALE: Activities may be completed with or without assistive devices. 8-Moszigxesa-vwopckz completes the activity by him/herself with no assistance from a helper. 5-Set-up or Clean-up Assistance-helper sets up or cleans up; patient completes activity. [place] assists only prior to or following the activity. 4-Supervision or Touching Assistance-helper provides verbal cues and/or touching/steadying and/or contact guard assistance as patient completes activity. Assistance may be provided throughout the activity or intermittently. 3-Partial/Moderate Assistance-helper does LESS THAN HALF the effort. [place] lifts, holds or supports trunk or limbs, but provides less than half the effort. 2-Substantial/Maximal Assistance-helper does MORE THAN HALF the effort. [place] lifts or holds trunk or limbs and provides more than half the effort. 7-Hsjyktthj-sfamib does ALL the effort. Patient does none of the effort to complete the activity. Or, the assistance of 2 or more helpers is required for the patient to complete the activity. If activity was not attempted, code reason: 7-Patient Refused. 9-Not Applicable-not attempted and the patient did not perform the activity before the current illness, exacerbation or injury. 10-Not Attempted due to Environmental Limitations-(lack of equipment, weather restraints, etc.). 88-Not Attempted due to Medical Conditions or Safety Concerns. Bed Mobility: 3 Transfers (B,C,W/C): 3 Gait: 3 Indoor Mobility (Ambulation): Needed Some Help Prior Devices Use: Walker PT Evaluation-Current Subjective Patient is very confused. Objective Patient Orientation: Confused ROM/Strength ROM Lower Extremities bilateral LE WFL Strength Lower Extremities 3/5 grossly bilateral LE /clinical judgment Integumentary/Posture Bowel Incontinence: Yes Bladder Incontinence: Yes Posture kyphotic Neuromuscular (Tone, Coordination, Reflexes) diminished coordination Sensory Vision: Wears Glasses Hearing: Impaired Transfers Lying to Sitting/Side of Bed(Q: 3 Sit to Stand (QC): 2 Chair/Dzq-xn-Xqzol Xfer(QC): 2 Gait Mode of Locomotion: Walk Anticipated Mode of Locomotion: Walk Walk 10 feet (QC): 3 Walk 50 ft with 2 Turns(QC): 7 Distance: 10' Gait Assistive Device: FWW Comments/Gait Description extended UE's with FWW use/retropulsive Balance Sitting Static: Fair Sitting Dynamic: Fair Standing Static: Poor Standing Dynamic: Poor Assessment/Needs Patient will benefit from skilled PT to address functional strength and mobility to improve current LOF to safely return to [place] at maximum LOF. Rehab Potential: Fair PT Intermediate Goals Woodworking Belt Sander Goals PT Woodworking Belt Sander Goals Time Frame: Jan 29, 2023 Roll Left & Right (QC): 4 Sit to Lying (QC): 4 Lying-Sitting on Side/Bed(QC): 4 Sit to Stand (QC): 4 Chair/Vck-mx-Acbvd Xfer(QC): 4 Toilet Transfer (QC): 4 Walk 10 feet (QC): 4 Walk 50ft with 2 Turns (QC): 4 Walk 150 ft (QC): 4 PT Plan Problem List Problem List: Activity Tolerance, Functional Strength, Safety, Balance, Gait, Transfer, Bed Mobility Treatment/Plan Treatment Plan: Continue Plan of Care Treatment Plan: Bed Mobility, Education, Functional Activity Mario, Functional Strength, Gait, Safety, Therapeutic Exercise, Transfers Treatment Duration: Jan 29, 2023 Frequency: 5 times per week Estimated Hrs Per Day: .25 hour per day Patient and/or Family Agrees t: Yes Time Time In: 856 Time Out: 911 DATE: Jan 13, 2023 Total Billed Treatment Time: 15 Total Billed Treatment 1 visit [facility] 15 min KIAH POOLE PT Jan 13, 2023 10:24
--- NOTE | 2023-01-13 10:29 | Occupational Therapy Eval ---
OT Evaluation-General/PLF Medical Diagnosis Admission Date Jan 12, 2023 at 21:53 Medical Diagnosis: GENERALIZED WEAKNESS Onset Date: Jan 12, 2023 Therapy Diagnosis Therapy Diagnosis: AMS, weakness, hallucination Precautions Precautions/Isolations: Fall Prevention, Standard Precautions Safety Interventions: Bed Exit Alarm Weight Bear Status Weight Bearing Restriction: Weight Bearing/Tolerated Referral Referral Reason: Activity Tolerance, Self Care, Evaluation/Treatment Medical History Current History Increased anxiety w/ verbal instruction to get out of bed, stand and walk to recliner 3 feet distance. SEE PT note. Reviewed History: Yes Social History Home: [facility] Current Living Status: Alone ADL-Prior Level of Function SCALE: Activities may be completed with or without assistive devices. 5-Odbizvfakp-srzrjjn completes the activity by him/herself with no assistance from a helper. 5-Set-up or Clean-up Assistance-helper sets up or cleans up; patient completes activity. [place] assists only prior to or following the activity. 4-Supervision or Touching Assistance-helper provides verbal cues and/or touching/steadying and/or contact guard assistance as patient completes activity. Assistance may be provided throughout the activity or intermittently. 3-Partial/Moderate Assistance-helper does LESS THAN HALF the effort. [place] lifts, holds or supports trunk or limbs, but provides less than half the effort. 2-Substantial/Maximal Assistance-helper does MORE THAN HALF the effort. [place] lifts or holds trunk or limbs and provides more than half the effort. 4-Xjwmwmddp-kvuxuv does ALL the effort. Patient does none of the effort to complete the activity. Or, the assistance of 2 or more helpers is required for the patient to complete the activity. If activity was not attempted, code reason: 7-Patient Refused. 9-Not Applicable-not attempted and the patient did not perform the activity before the current illness, exacerbation or injury. 10-Not Attempted due to Environmental Limitations-(lack of equipment, weather restraints, etc.). 88-Not Attempted due to Medical Conditions or Safety Concerns. Self Care: Independent Functional Cognition: Needed Some Help OT Current Status Subjective Confused and reports she lives there, points to corner of room. Mental Status/Objective Patient Orientation: Person, Confused Attachments: Telemetry (patient pulls off lines) Current Upper Extremity ROM BUE ROM WFLS Upper Extremity Coordination impaired, shaking hands Upper Extremity Strength +3/5 ADL-Treatment Eating (QC): 4 Oral Hygiene (QC): 4 Shower/Bathe Self (QC): 88 Upper Body Dressing (QC): 3 Lower Body Dressing (QC): 1 On/Off Footwear (QC): 1 Toileting Hygiene (QC): 1 2 person initial transfer and mobility Education OT Patient Education: Correct positioning, Exercise program, Modified ADL techniques, Progress toward Goal/Update tx plan, Purpose of tx/functional activities, Reviewed precautions, Rehab process, Safety issues, Transfer techniques, Use of adapted equipment, W/C management Teaching Recipient: Patient Response to Teaching: Unable to Comprehend, Reinforcement Needed OT Skilled Nursing Goals Sales Order Administrator Goals Eating (QC): 5 Oral Hygiene (QC): 5 Toileting Hygiene (QC): 4 Shower/Bathe Self (QC): 4 Upper Body Dressing (QC): 4 Lower Body Dressing (QC): 4 On/Off Footwear (QC): 4 1=Demonstrate adherence to instructed precautions during ADL tasks. 2=Patient will verbalize/demonstrate understanding of assistive devices/modifications for ADL. 3=Patient will improve strength/tolerance for activity to enable patient to perform ADL's. OT Education/Plan Problem List/Assessment Assessment: Decreased Activ Tolerance, Decreased Safety Aware, Decreased UE Strength, Dependent Transfers, Impaired Bed Mobility, Impaired Cognition, Impaired Coordination, Impaired Funct Balance, Impaired Self-Care Skills Discharge Recommendations Plan/Recommendations: Continue POC Therapy Discharge Recommendati: Post Acute OT Treatment Plan/Plan of Care Treatment,Training & Education: Yes Patient would benefit from OT for education, treatment and training to promote independence in ADL's, mobility, safety and/or upper extremity function for ADL's. Plan of Care: ADL Retraining, Functional Mobility, Group Exercise/Act as Ind, UE Funct Exercise/Act Treatment Duration: Jan 17, 2023 Frequency: 3 times per week (3-5 times per week) Estimated Hrs Per Day: .25 hour per day Agreement: Yes Rehab Potential: Guarded Time Start Time: 08:56 Stop Time: 09:10 DATE: Jan 13, 2023 Total Time Billed (hr/min): 14 Billed Treatment Time EVM 14 min ANGEL WINTER OT Jan 13, 2023 10:29
[2023-01-13] MEDS ORDERED: ACETAMINOPHEN 325 MG TABLET PO PRN (11:45)
[2023-01-13 11:55] VITALS: BP 145/80
[2023-01-13] MEDS ORDERED: DOCU100C37 PO (15:10)
[2023-01-13] MEDS ORDERED: CHOL100048 PO (15:10)
[2023-01-13 16:27] VITALS: BP 139/65
[2023-01-13 20:37] VITALS: BP 141/65
[2023-01-13] MEDS ORDERED: amLODIPine 5 MG TABLET PO SCH (21:00)
[2023-01-13] MEDS ORDERED: DONEPEZIL 10 MG TABLET PO SCH (21:00)
[2023-01-13] MEDS ORDERED: LOPERAMIDE 2 MG CAPSULE PO SCH (21:00)
[2023-01-13 23:11] VITALS: BP 129/57
[2023-01-14 03:34] VITALS: BP 121/58
[2023-01-14 05:15] LABS: BASOPHILS # (AUTO) 0.1 10^3/uL (0.0-0.1); BASOPHILS % (AUTO) 1 % (0-10); EOSINOPHILS # (AUTO) 0.4 10^3/uL (0.0-0.3); EOSINOPHILS % (AUTO) 5 % (0-10); HEMATOCRIT 39 % (35-52); LYMPHOCYTES # (AUTO) 1.9 10^3/uL (1.0-4.0); LYMPHOCYTES % (AUTO) 25 % (12-44); MEAN CORPUSCULAR HEMOGLOBIN 32 pg (25-34); MEAN CORPUSCULAR HGB CONC 34 g/dL (32-36); MEAN CORPUSCULAR VOLUME 95 fL (80-99); MEAN PLATELET VOLUME 10.9 fL (9.0-12.2); MONOCYTES # (AUTO) 0.7 10^3/uL (0.0-1.0); MONOCYTES % (AUTO) 9 % (0-12); NEUTROPHILS # (AUTO) 4.5 10^3/uL (1.8-7.8); NEUTROPHILS % (AUTO) 60 % (42-75); PLATELET COUNT 190 10^3/uL (130-400); WHITE BLOOD COUNT 7.5 10^3/uL (4.3-11.0)
[2023-01-14 05:39] LABS: ALBUMIN 3.5 GM/DL (3.2-4.5); BILIRUBIN,TOTAL 0.8 MG/DL (0.1-1.0); CALCIUM 8.6 MG/DL (8.5-10.1); CREATININE SERUM 0.83 MG/DL (0.60-1.30); POTASSIUM 3.3 MMOL/L (3.6-5.0); TOTAL PROTEIN 5.6 GM/DL (6.4-8.2)
[2023-01-14] MEDS: NS IV 1000 ML 1,000 ML IV SCH (06:10)
[2023-01-14] MEDS: THERAPEUTIC MULTIVITAMIN W/MINERALS TABLET PO SCH ×2 (06:10→07:47)
[2023-01-14 07:08] VITALS: BP 125/61
[2023-01-14] MEDS: DOCUSATE SODIUM 100 MG CAPSULE PO SCH (07:46)
[2023-01-14] MEDS: ENOXAPARIN 40 MG/0.4 ML SYRINGE SC SCH (07:47)
[2023-01-14] MEDS: SENNOSIDES 8.6 MG TABLET PO SCH (07:47)
[2023-01-14 08:07] VITALS: BP 125/61
[2023-01-14] MEDS ORDERED: MULTIVIT MIN PO SCH (09:00)
[2023-01-14] MEDS ORDERED: [UNRECOGNIZED DRUG - OTHER] PO SCH (09:00)
[2023-01-14] MEDS ORDERED: MEMANTINE HCL 21 MG PO SCH (09:00)
[2023-01-14] MEDS ORDERED: LUT PO SCH (09:00)
[2023-01-14] MEDS ORDERED: MEMANTINE 5 MG TABLET PO SCH (09:00)
[2023-01-14] MEDS ORDERED: amLODIPine 5 MG TABLET PO SCH (09:00)
[2023-01-14] MEDS ORDERED: IRON PO SCH (09:00)
[2023-01-14] MEDS ORDERED: VIT K PO SCH (09:00)
[2023-01-14] MEDS ORDERED: POTASSIUM CHLORIDE 20 MEQ TABLET PO NR (10:30)
--- NOTE | 2023-01-14 10:58 | Progress Note ---
NATHALY GALLAGHER 01/14/23 1058: Progress Note 01/14/2023: CC: Generalized weakness Course: Katalina is a 72 year old female that presented to the ED on 01/12 due to some generalized weakness and lower back pain. CT found degenerative changes of the hips and pelvis consistent with a patient of her age. She has a past medical history of vascular dementia and came from a SNF. Throughout her course at the hospital, Katalina was alert to self only. She as a moderately flat affect and at times says things incongruous with conversation. During her time at the hospital she has had numerous labs drawn. They showed no acute processes and no sign of infection or inflammation. She was found to be hypokalemic which is being treated with a supplement. For her weakness, PT/OT were consulted and noted that she was weak, but with some work she could improve her strength. Katalina has progressing dementia that is not expected to subside. Her weakness and back pain have continued to improve. Katalina has not endorsed any back pain since her first night in the hospital. She will discharge to her SNF where she will continue to have care. For her dementia, her aricept and memantine were restarted. She was also given 20 meq of Potassium Chloride. Continue all other medications per discharge order. She has no current barriers to discharge. No further concerns. ADRIANA STALLWORTH DO 01/15/23 0556: Supervisory-Addendum Brief Verification & Attestation Participated in pt care: history, MDM, physical Personally performed: exam, history, MDM, supervision of care Care discussed with: Medical Student Procedures: n/a Results interpretation: Verified all documentation Verification and Attestation of Medical Student E/M Service A medical student performed and documented this service in my presence. I reviewed and verified all information documented by the medical student and made modifications to such information, when appropriate. I personally performed the physical exam and medical decision making. Adriana Stallworth Jan 15, 2023,05:55 NATHALY GALLAGHER Jan 14, 2023 10:58 ADRIANA STALLWORTH DO Jan 15, 2023 05:56
[2023-01-14 11:05] VITALS: BP 147/67
--- NOTE | 2023-01-14 11:07 | Physical Therapy Daily Note ---
PT Daily Note-Current Subjective Patient much more alert on this date. Pain Section J - Health Conditions 1. Rarely or not at all 2. Occasionally 3. Frequently 4. Almost constantly 8. Unable to answer Pain Effect on Sleep: 8 Pain Interference with Therapy: 8 Pain Interference w/Day-to-Day: 8 Mental Status Patient Orientation: Confused Transfers SCALE: Activities may be completed with or without assistive devices. 7-Zutwlsdmui-hdjrdaa completes the activity by him/herself with no assistance from a helper. 5-Set-up or Clean-up Assistance-helper sets up or cleans up; patient completes activity. [place] assists only prior to or following the activity. 4-Supervision or Touching Assistance-helper provides verbal cues and/or touching/steadying and/or contact guard assistance as patient completes activity. Assistance may be provided throughout the activity or intermittently. 3-Partial/Moderate Assistance-helper does LESS THAN HALF the effort. [place] lifts, holds or supports trunk or limbs, but provides less than half the effort. 2-Substantial/Maximal Assistance-helper does MORE THAN HALF the effort. [place] lifts or holds trunk or limbs and provides more than half the effort. 1-Zmikrxubz-jtpnjr does ALL the effort. Patient does none of the effort to complete the activity. Or, the assistance of 2 or more helpers is required for the patient to complete the activity. If activity was not attempted, code reason: 7-Patient Refused. 9-Not Applicable-not attempted and the patient did not perform the activity before the current illness, exacerbation or injury. 10-Not Attempted due to Environmental Limitations-(lack of equipment, weather restraints, etc.). 88-Not Attempted due to Medical Conditions or Safety Concerns. Lying to Sitting/Side of Bed(Q: 4 Sit to Stand (QC): 3 Chair/Esx-lr-Dwflo Xfer(QC): 4 Gait Training Distance: 180' Walk 10 feet (QC): 4 Walk 50 ft with 2 Turns(QC): 4 Walk 150 ft (QC): 4 Gait Assistive Device: FWW steady, functional gait sequence Assessment Patient much improved on this date requiring SBA with ambulation with FWW. Patient in recliner with chair alarm activated. Patient does require minimal as sist with sit to stand from low surface/SBA from elevated surface. PT Label Folder Goals Fdc Goals PT Fdc Goals Time Frame: Jan 29, 2023 Roll Left & Right (QC): 4 Sit to Lying (QC): 4 Lying-Sitting on Side/Bed(QC): 4 Sit to Stand (QC): 4 Chair/Mpk-di-Nkheu Xfer(QC): 4 Toilet Transfer (QC): 4 Walk 10 feet (QC): 4 Walk 50ft with 2 Turns (QC): 4 Walk 150 ft (QC): 4 PT Plan Treatment/Plan Treatment Plan: Continue Plan of Care Treatment Plan: Bed Mobility, Education, Functional Activity Mario, Functional Strength, Gait, Safety, Therapeutic Exercise, Transfers Treatment Duration: Jan 29, 2023 Frequency: 5 times per week Estimated Hrs Per Day: .25 hour per day Patient and/or Family Agrees t: Yes Time Time In: 945 Time Out: 1000 DATE: Jan 14, 2023 Total Billed Treatment Time: 15 Total Billed Treatment 1 visit [facility] 15 min KIAH POOLE PT Jan 14, 2023 11:07
[2023-01-14] MEDS ORDERED: OXC5T PO (11:15)
--- NOTE | 2023-01-14 11:17 | D/C HH Face to Face Order ---
D/C Face to Face Orders Reconcile Patient Problems Problems Reviewed?: Yes Instructions for Patient Via [facility], Patient Instructions/FollowUp: PCP 1 week Physician to follow Patient: PCP Discharge Diet for Home: No Restrictions Patient Problems: Dementia Back pain Patient Data-Allergies,Ht & Wt Patient Allergies: Coded Allergies: No Allergy Information Available (Unverified , 06/16/17) Home Health Need/Face to Face Date of Face to Face: Jan 14, 2023 Clinical Findings: Generalized weakness and fatigue, Instability, Muscle weakness I have seen Pt [id number]: Yes Discharged To: Home Diagnosis/Conditions: Dementia Patient is Homebound due to: CognItive deficits, Muscle weakness Homebound Status Due to the above stated illness, injury or surgical procedure (medical condition or diagnosis) and associated clinical findings, the patient is homebound because of his/her inability to leave home except with aid of a supportive device and/or person AND leaving the home requires a considerable and taxing effort or is medically contraindicated. Pt req the following assistanc: [facility] Nursing Orders Home Health Services Order: Yarn Skeins Examiner-Evaluate & Treat, Physical The rapy-Evaluate & Treat Home Health Infusion Therapy Line Start Date: Jan 12, 2023 Certify Stmt I certify that this patient is under my care and that I, a nurse practitioner or a physician; a custody assistant working with me, had a face to face encounter that - meets the physician face to face encounter requirements with this patient as dated. BABAR STALLWORTH DO Jan 14, 2023 11:17
--- NOTE | 2023-01-14 11:18 | Discharge Summary ---
Diagnosis/Chief Complaint Date of Admission Jan 12, 2023 at 21:53 Date of Discharge Discharge Date: Jan 14, 2023 Discharge Diagnosis A/P -Dementia * bed monitor, fall risk * restart Donezepil, Memantine * Review home medications for interactions -Degenerative changes to pelvis and hip * pain medication -Sciatica * pain management -Generalized weakness * consider ARU for strength conditioning Reason Hospital Visit Chief complaint: Generalized weakness HPI: This is a 72-year-old female assisted living patient who presented to the ER with nonspecific back pain and multiple falls with severe weakness. No fracture was assessed on imaging scan. Goal is to initiate PT and OT and may need skilled or inpatient rehab prior to going back to assisted living. Dementia is significant. Discharge Summary Discharge Physical Examination Allergies: Coded Allergies: No Allergy Information Available (Unverified , 06/16/17) Vitals & I&Os Vital Signs Date Time Temp Pulse Resp B/P (MAP) Pulse Ox O2 Delivery O2 Flow Rate FiO2 01/14/23 16:35 01/14/23 15:45 36.3 65 19 94 Room Air 01/14/23 08:07 21 01/14/23 08:03 0.00 General Appearance: Alert, Cooperative Respiratory: Clear to Auscultation Hospital Course Was the Problem List Reviewed?: Yes Course: Katalina is a 72 year old female that presented to the ED on 01/12 due to some generalized weakness and lower back pain. CT found degenerative changes of the hips and pelvis consistent with a patient of her age. She has a past medical history of vascular dementia and came from a SNF. Throughout her course at the hospital, Katalina was alert to self only. She as a moderately flat affect and at times says things incongruous with conversation. During her time at the hospital she has had numerous labs drawn. They showed no acute processes and no sign of infection or inflammation. She was found to be hypokalemic which is being treated with a supplement. For her weakness, PT/OT were consulted and noted that she was weak, but with some work she could improve her strength. Katalina has progressing dementia that is not expected to subside. Her weakness and back pain have continued to improve. Katalina has not endorsed any back pain since her first night in the hospital. She will discharge to her SNF where she will continue to have care. For her dementia, her aricept and memantine were restarted. She was also given 20 meq of Potassium Chloride. Continue all other medications per discharge order. She has no current barriers to discharge. No further concerns. Labs (last 24 hrs) Laboratory Tests 01/12/23 20:14: White Blood Count 9.4, Red Blood Count 4.67, Hemoglobin 14.8, Hematocrit 44, Mean Corpuscular Volume 94, Mean Corpuscular Hemoglobin 32, Mean Corpuscular Hemoglobin Concent 34, Red Cell Distribution Width 13.0, Platelet Count 234, Mean Platelet Volume 10.8, Immature Granulocyte % (Auto) 0, Neutrophils (%) (Auto) 50, Lymphocytes (%) (Auto) 36, Monocytes (%) (Auto) 8, Eosinophils (%) (Auto) 5, Basophils (%) (Auto) 1, Neutrophils # (Auto) 4.7, Lymphocytes # (Auto) 3.3, Monocytes # (Auto) 0.8, Eosinophils # (Auto) 0.5H, Basophils # (Auto) 0.1, Immature Granulocyte # (Auto) 0.0, Sodium Level 140, Potassium Level 3.9, Chloride Level 106, Carbon Dioxide Level 21, Anion Gap 13, Blood Urea Nitrogen 14, Creatinine 0.93, Estimat Glomerular Filtration Rate 64, BUN/Creatinine Ratio 15, Glucose Level 103, Calcium Level 9.4, Corrected Calcium 9.4, Total Bilirubin 0.5, Aspartate Amino Transf (AST/SGOT) 30, Alanine Aminotransferase (ALT/SGPT) 20, Alkaline Phosphatase 58, Total Protein 7.2, Albumin 4.0 01/12/23 20:22: Urine Color YELLOW, Urine Clarity CLEAR, Urine pH 7.5, Urine Specific [place] 1.020, Urine Protein NEGATIVE, Urine Glucose (UA) NEGATIVE, Urine Ketones NEGATIVE, Urine Nitrite NEGATIVE, Urine Bilirubin NEGATIVE, Urine Urobilinogen 0.2, Urine Leukocyte Esterase NEGATIVE, Urine RBC (Auto) NEGATIVE, Urine RBC NONE, Urine WBC RARE, Urine Squamous Epithelial Cells NONE, Urine Crystals P RESENTH, Urine Amorphous Sediment LARGE ARMANDO PHOSPHATEH, Urine Bacteria NEGATIVE, Urine Casts PRESENT, Urine Granular Casts 0-2H, Urine Mucus SMALLH, Urine Culture Indicated NO 01/13/23 05:17: White Blood Count 9.0, Red Blood Count 4.47, Hemoglobin 14.1, Hematocrit 42, Mean Corpuscular Volume 94, Mean Corpuscular Hemoglobin 32, Mean Corpuscular Hemoglobin Concent 34, Red Cell Distribution Width 12.9, Platelet Count 217, Mean Platelet Volume 11.0, Immature Granulocyte % (Auto) 0, Neutrophils (%) (Auto) 77H, Lymphocytes (%) (Auto) 13, Monocytes (%) (Auto) 8, Eosinophils (%) (Auto) 1, Basophils (%) (Auto) 1, Neutrophils # (Auto) 6.9, Lymphocytes # (Auto) 1.2, Monocytes # (Auto) 0.7, Eosinophils # (Auto) 0.1, Basophils # (Auto) 0.1, Immature Granulocyte # (Auto) 0.0, Sodium Level 141, Potassium Level 3.6, Chloride Level 109H, Carbon Dioxide Level 20L, Anion Gap 12, Blood Urea Nitrogen 13, Creatinine 0.81, Estimat Glomerular Filtration Rate 76, BUN/Creatinine Ratio 16, Glucose Level 112H, Calcium Level 8.9, Corrected Calcium 9.1, Total Bilirubin 0.7, Aspartate Amino Transf (AST/SGOT) 145H, Alanine Aminotransferase (ALT/SGPT) 73H, Alkaline Phosphatase 56, Total Protein 6.5, Albumin 3.8 01/14/23 05:07: White Blood Count 7.5, Red Blood Count 4.07, Hemoglobin 13.0, Hematocrit 39, M alex Corpuscular Volume 95, Mean Corpuscular Hemoglobin 32, Mean Corpuscular Hemoglobin Concent 34, Red Cell Distribution Width 13.3, Platelet Count 190, Mean Platelet Volume 10.9, Immature Granulocyte % (Auto) 0, Neutrophils (%) (Auto) 60, Lymphocytes (%) (Auto) 25, Monocytes (%) (Auto) 9, Eosinophils (%) (Auto) 5, Basophils (%) (Auto) 1, Neutrophils # (Auto) 4.5, Lymphocytes # (Auto) 1.9, Monocytes # (Auto) 0.7, Eosinophils # (Auto) 0.4H, Basophils # (Auto) 0.1, Immature Granulocyte # (Auto) 0.0, Sodium Level 144, Potassium Level 3.3L, Chloride Level 111H, Carbon Dioxide Level 23, Anion Gap 10, Blood Urea Nitrogen 14, Creatinine 0.83, Estimat Glomerular Filtration Rate 74, BUN/Creatinine Ratio 17, Glucose Level 100, Calcium Level 8.6, Corrected Calcium 9.0, Total Bilirubin 0.8, Aspartate Amino Transf (AST/SGOT) 42H, Alanine Aminotransferase (ALT/SGPT) 47, Alkaline Phosphatase 48, Total Protein 5.6L, Albumin 3.5 Pending Labs Laboratory Tests 01/12/23 20:14: White Blood Count 9.4, Red Blood Count 4.67, Hemoglobin 14.8, Hematocrit 44, Mean Corpuscular Volume 94, Mean Corpuscular Hemoglobin 32, Mean Corpuscular Hemoglobin Concent 34, Red Cell Distribution Width 13.0, Platelet Count 234, Mean Platelet Volume 10.8, Immature Granulocyte % (Auto) 0, Neutrophils (%) (Auto) 50, Lymphocytes (%) (Auto) 36, Monocytes (%) (Auto) 8, Eosinophils (%) (Auto) 5, Basophils (%) (Auto) 1, Neutrophils # (Auto) 4.7, Lymphocytes # (Auto) 3.3, Monocytes # (Auto) 0.8, Eosinophils # (Auto) 0.5, Basophils # (Auto) 0.1, Immature Granulocyte # (Auto) 0.0, Sodium Level 140, Potassium Level 3.9, Chloride Level 106, Carbon Dioxide Level 21, Anion Gap 13, Blood Urea Nitrogen 14, Creatinine 0.93, Estimat Glomerular Filtration Rate 64, BUN/Creatinine Ratio 15, Glucose Level 103, Calcium Level 9.4, Corrected Calcium 9.4, Total Bilirubin 0.5, Aspartate Amino Transf (AST/SGOT) 30, Alanine Aminotransferase (ALT/SGPT) 20, Alkaline Phosphatase 58, Total Protein 7.2, Albumin 4.0 01/12/23 20:22: Urine Color YELLOW, Urine Clarity CLEAR, Urine pH 7.5, Urine Specific [place] 1.020, Urine Protein NEGATIVE, Urine Glucose (UA) NEGATIVE, Urine Ketones NEGATIVE, Urine Nitrite NEGATIVE, Urine Bilirubin NEGATIVE, Urine Urobilinogen 0.2, Urine Leukocyte Esterase NEGATIVE, Urine RBC (Auto) NEGATIVE, Urine RBC NONE, Urine WBC RARE, Urine Squamous Epithelial Cells NONE, Urine Crystals PRESENT, Urine Amorphous Sediment LARGE ARMANDO PHOSPHATE, Urine Bacteria NEGATIVE, Urine Casts PRESENT, Urine Granular Casts 0-2, Urine Mucus SMALL, Urine Culture Indicated NO 01/13/23 05:17: White Blood Count 9.0, Red Blood Count 4.47, Hemoglobin 14.1, Hematocrit 42, Mean Corpuscular Volume 94, Mean Corpuscular Hemoglobin 32, Mean Corpuscular Hemoglobin Concent 34, Red Cell Distribution Width 12.9, Platelet Count 217, Mean Platelet Volume 11.0, Immature Granulocyte % (Auto) 0, Neutrophils (%) (Auto) 77, Lymphocytes (%) (Auto) 13, Monocytes (%) (Auto) 8, Eosinophils (%) (Auto) 1, Basophils (%) (Auto) 1, Neutrophils # (Auto) 6.9, Lymphocytes # (Auto) 1.2, Monocytes # (Auto) 0.7, Eosinophils # (Auto) 0.1, Basophils # (Auto) 0.1, Immature Granulocyte # (Auto) 0.0, Sodium Level 141, Potassium Level 3.6, Chloride Level 109, Carbon Dioxide Level 20, Anion Gap 12, Blood Urea Nitrogen 13, Creatinine 0.81, Estimat Glomerular Filtration Rate 76, BUN/Creatinine Ratio 16, Glucose Level 112, Calcium Level 8.9, Corrected Calcium 9.1, Total Bilirubin 0.7, Aspartate Amino Transf (AST/SGOT) 145, Alanine Aminotransferase (ALT/SGPT) 73, Alkaline Phosphatase 56, Total Protein 6.5, Albumin 3.8 01/14/23 05:07: White Blood Count 7.5, Red Blood Count 4.07, Hemoglobin 13.0, Hematocrit 39, Mean Corpuscular Volume 95, Mean Corpuscular Hemoglobin 32, Mean Corpuscular Hemoglobin Concent 34, Red Cell Distribution Width 13.3, Platelet Count 190, Mean Platelet Volume 10.9, Immature Granulocyte % (Auto) 0, Neutrophils (%) (Auto) 60, Lymphocytes (%) (Auto) 25, Monocytes (%) (Auto) 9, Eosinophils (%) (Auto) 5, Basophils (%) (Auto) 1, Neutrophils # (Auto) 4.5, Lymphocytes # (Auto) 1.9, Monocytes # (Auto) 0.7, Eosinophils # (Auto) 0.4, Basophils # (Auto) 0.1, Immature Granulocyte # (Auto) 0.0, Sodium Level 144, Potassium Level 3.3, Chloride Level 111, Carbon Dioxide Level 23, Anion Gap 10, Blood Urea Nitrogen 14, Creatinine 0.83, Estimat Glomerular Filtration Rate 74, BUN/Creatinine Ratio 17, Glucose Level 100, Calcium Level 8.6, Corrected Calcium 9.0, Total Bilirubin 0.8, Aspartate Amino Transf (AST/SGOT) 42, Alanine Aminotransferase (ALT/SGPT) 47, Alkaline Phosphatase 48, Total Protein 5.6, Albumin 3.5 Discharge Home Medications: Active Scripts Active Oxyir Tablet (Oxycodone HCl) 5 Mg Tab 5 Mg PO Q4HR PRN Reported Vitamin D3 (Cholecalciferol (Vitamin D3)) 25 Mcg (1000 Unit) Capsule 25 Mcg PO DAILY Docusate Sodium 100 Mg Capsule 100 Mg PO Q8H PRN Loperamide (Loperamide HCl) 2 Mg Capsule 2 Mg PO HS Centrum Women 50 Plus Minis Tb (Multivit-Min/Iron/FA/Vit K/Lut) 4 Mg Iron-200 Mcg-25 Mcg-150 Mcg Tablet 1 Each PO DAILY Tylenol (Acetaminophen) 325 Mg Tablet 650 Mg PO Q6H PRN Ezetimibe 10 Mg Tablet 10 Mg PO HS Memantine HCl ER (Memantine HCl) 21 Mg Cap.spr.24 21 Mg PO DAILY Aricept (Donepezil HCl) 10 Mg Tablet 10 Mg PO HS Amlodipine Besylate 5 Mg Tablet 5 Mg PO HS Instructions to patient/family Please see electronic discharge instructions given to patient. BABAR STALLWORTH DO Jan 14, 2023 11:17
--- NOTE | 2023-01-14 11:18 | Occupational Ther Daily Note ---
OT Current Status-Daily Note Subjective Patient continues to be disoriented and unable to provided day, month, year, location of stay and that she is in the hospital Mental Status/Objective Patient Orientation: Person ADL-Treatment Ambulation and transfer from/to toilet moderate assist w/ 75% VC and tactile cues. Urination odor and full saturated brief required max assist to remove. Max assist to thread LEs and pull socket assembler waist, patient does stand to FWW w/ moderate assist form toilet. Patient instruction for [place] hygiene moderate assist patient begins washing FWW. Therapy Code Descriptions/Definitions Functional [place] Measure: 0=Not Assessed/NA 4=Minimal Assistance 1=Total Assistance 5=Supervision or Setup 2=Maximal Assistance 6=Modified [place] 3=Moderate Assistance 7=Complete IndependenceSCALE: Activities may be completed with or without assistive devices. 9-[id number] completes the activity by him/herself with no assistance fr om a helper. 5-Set-up or Clean-up Assistance-helper sets up or cleans up; patient completes activity. [place] assists only prior to or following the activity. 4-Supervision or Touching Assistance-helper provides verbal cues and/or touching/steadying and/or contact guard assistance as patient completes activity. Assistance may be provided throughout the activity or intermittently. 3-Partial/Moderate Assistance-helper does LESS THAN HALF the effort. [place] lifts, holds or supports trunk or limbs, but provides less than half the effort. 2-Substantial/Maximal Assistance-helper does MORE THAN HALF the effort. [place] lifts or holds trunk or limbs and provides more than half the effort. 8-[id number] does ALL the effort. Patient does none of the effort to complete the activity. Or, the assistance of 2 or more helpers is required for the patient to complete the activity. If activity was not attempted, code reason: 7-Patient Refused. 9-Not Applicable-not attempted and the patient did not perform the activity before the current illness, exacerbation or injury. 10-Not Attempted due to Environmental Limitations-(lack of equipment, weather restraints, etc.). 88-Not Attempted due to Medical Conditions or Safety Concerns. Eating (QC): 5 Oral Hygiene (QC): 4 Bathing Location: L Upper Leg, R Upper Leg, Buttocks, Perineal Area Shower/Bathe Self (QC): 3 Upper Body Dressing (QC): 4 Lower Body Dressing (QC): 3 On/Off Footwear: 3 Toileting Hygiene (QC): 3 Toilet Transfer (QC): 3 Education OT Patient Education: Correct positioning, Modified ADL techniques, Progress toward Goal/Update tx plan, Purpose of tx/functional activities, Reviewed precautions, Rehab process, Safety issues, Transfer techniques, Use of adapted equipment Teaching Recipient: Patient Teaching Methods: Demonstration, Discussion Response to Teaching: Reinforcement Needed OT Family Specialist Goals Custodial Goals Eating (QC): 5 Oral Hygiene (QC): 5 Toileting Hygiene (QC): 4 Shower/Bathe Self (QC): 4 Upper Body Dressing (QC): 4 Lower Body Dressing (QC): 4 On/Off Footwear (QC): 4 1=Demonstrate adherence to instructed precautions during ADL tasks. 2=Patient will verbalize/demonstrate understanding of assistive devices /modifications for ADL. 3=Patient will improve strength/tolerance for activity to enable patient to perform ADL's. OT Education/Plan Problem List/Assessment Assessment: Decreased Activ Tolerance, Decreased Safety Aware, Decreased UE Strength, Impaired Cognition, Impaired Coordination, Impaired Funct Balance, Impaired Self-Care Skills Discharge Recommendations Plan/Recommendations: Continue POC Therapy Discharge Recommendati: Post Acute OT Treatment Plan/Plan of Care Treatment,Training & Education: Yes Patient would benefit from OT for education, treatment and training to promote independence in ADL's, mobility, safety and/or upper extremity function for ADL's. Plan of Care: ADL Retraining, Functional Mobility, Group Exercise/Act as Ind, UE Funct Exercise/Act Treatment Duration: Jan 17, 2023 Frequency: 3 times per week Estimated Hrs Per Day: .25 hour per day Agreement: Yes Rehab Potential: Guarded Time Start Time: 09:45 Stop Time: 10:00 DATE: Jan 14, 2023 Total Time Billed (hr/min): 15 Billed Treatment Time ADL 15 min ANGEL WINTER OT Jan 14, 2023 11:18
[2023-01-14 15:45] VITALS: BP 151/70
== END 2023-01-14 11:14 | disposition home or self-care (01) ==
LOC: EDUNIT# 20:07 → ER 20:11 → 4TH 21:53 → UNDOADMOB 21:53 → 4TH 22:15 → UNDODISOB 01-14 11:14
PROVIDERS: ADMIT Internal Medicine; ATTEND Internal Medicine
DX: M54.31 Sciatica, right side (principal); F03.90 Unspecified dementia, unspecified severity, without behavioral disturbance, psychotic disturbance, mood disturbance, and anxiety; R53.1 Weakness
CPT/HCPCS: 36415; 51701; 72128; 72131; 72170; 72192; 80053; 81000; 85025; 94760; 96361; 96372; 96375; G0378